=== PATIENT | male | born 1995 | race Caucasian/White ===

== ENCOUNTER 2017-02-07 14:27 | Emergency (ER) | payer SELFPAY ==
[~2017-02-07] VITALS: Ht 188 cm; Wt 113.5 kg
[2017-02-07 14:30] VITALS: BP 151/86
== END 2017-02-07 14:44 | disposition home or self-care (01) ==
LOC: ED 14:38
DX: K64.8 Other hemorrhoids (principal); K62.5 Hemorrhage of anus and rectum
CPT/HCPCS: 99283